=== PATIENT | female | born 1965 | race American Indian/Alaskan Native ===

== ENCOUNTER 2020-09-09 17:04 | Emergency (ER) | payer MEDICARE ==
[2020-09-09 17:48] VITALS: BP 120/66
--- NOTE | 2020-09-09 18:07 | Emergency Department Report ---
Chief Complaint: Medical Clearance Stated Complaint: POSS STD Time Seen by Provider: 09/09/20 18:05 - HPI History of Present Illness: Patient is here for routine STD testing no symptoms His partner had a positive syphilis test. But she states that she has syphilis at a younger age. Neither Person has symptoms - ROS Review of Systems: No symptoms - Exam Vital Signs: Vital Signs 09/09/20 17:43 Temperature 98.9 F Pulse Rate 87 Respiratory 18 Rate Blood Pressure 120/66 [Right] O2 Sat by Pulse 99 Oximetry Physical Exam: Alert and oriented Abdomen soft nontender S1-S2 lungs clear to auscultation MSE screening note: Focused history and physical exam performed. Due to findings the following was ordered: Being MSE out. I explained to the patient that we do not do routine STD testing have given patient referral to primary care Patient verbalizes understanding Patient discussed with doctor:: [facility] Disposition for MSE Clinical Impression: Concern about STD in female without diagnosis Disposition: Z-07 MED SCREENING EXAM-LEFT Is pt being admited?: No Does the pt Need Aspirin: No Condition: Stable Referrals: LACEY BHATIA MD [Staff Physician] - 3-5 Days Time of Disposition: 18:06
== END 2020-09-09 18:10 | disposition left against medical advice (07) ==
LOC: ED 17:04
DX: Z00.8 Encounter for other general examination (principal); Z53.21 Procedure and treatment not carried out due to patient leaving prior to being seen by health care provider